=== PATIENT | female | born 1945 | race Caucasian/White ===

== ENCOUNTER → 2017-05-15 | Outpatient (CLI) | payer MEDICARE | LOC: COL.RAD 14:09 | DX: J44.9 Chronic obstructive pulmonary disease, unspecified (principal); J98.6 Disorders of diaphragm; K76.89 Other specified diseases of liver; N28.1 Cyst of kidney, acquired; Z90.49 Acquired absence of other specified parts of digestive tract; I70.0 Atherosclerosis of aorta; M47.816 Spondylosis without myelopathy or radiculopathy, lumbar region; K83.8 Other specified diseases of biliary tract; Z98.890 Other specified postprocedural states | CPT/HCPCS: Q9967 ==

== ENCOUNTER → 2018-04-02 | Outpatient (CLI) | payer MEDICARE | LOC: COL.RAD 12:34 | DX: M19.022 Primary osteoarthritis, left elbow (principal); S69.92XS Unspecified injury of left wrist, hand and finger(s), sequela ==

== ENCOUNTER 2018-10-31 14:09 | Day surgery (SDC) | payer MEDICARE ==
[2018-10-31 16:05] VITALS: BP 118/76; PULSE 85; TEMP 97.2
--- NOTE | 2018-10-31 16:05 | NUR ---
Pt to GI bay 7 via cart from [employer]. Pt awake and alert. Pt ambulates to recliner with stand by assitance. Daughter in room. Warm blankets given. Muffin and juice provided. Call light within reach.
[2018-10-31 16:15] VITALS: BP 118/76; PULSE 86
--- NOTE | 2018-10-31 16:15 | NUR ---
Pt continues to rest. Denies needs. Call light within reach.
[2018-10-31 16:30] VITALS: BP 128/76; PULSE 81
--- NOTE | 2018-10-31 16:30 | NUR ---
Discharge instructions reviewed. Pt voices understanding. IV site discontinued with all parts intact. Pt up to dress. Call light within reach.
--- NOTE | 2018-10-31 16:59 | NUR ---
Pt escorted to private car via wheel chair. Pt accompanied home by her daughter.
== END 2018-10-31 17:02 | disposition home or self-care (01) ==
LOC: SDCO 14:09
DX: R13.10 Dysphagia, unspecified (principal); K22.2 Esophageal obstruction; K25.7 Chronic gastric ulcer without hemorrhage or perforation; Z79.899 Other long term (current) drug therapy; J43.9 Emphysema, unspecified; E03.9 Hypothyroidism, unspecified; K21.9 Gastro-esophageal reflux disease without esophagitis; Z90.49 Acquired absence of other specified parts of digestive tract; Z90.710 Acquired absence of both cervix and uterus
CPT/HCPCS: C1726; J2250; J3010

== ENCOUNTER → 2019-09-07 | Outpatient (CLI) | payer MEDICARE ==
[~2019-09-07] MED LIST: AMITRIPTYLINE H75 M1 PO; CEFTIN 250250 MG/TAB PO; DAZIDOX10 MG PO; FENTANYL 25 MCG TD; PROZAC 20MG20 MG PO; SYNTHROID0.088 MG/T PO; VENTOLIN0.09 MG IH
== END ==
LOC: COL.RAD 09:43
DX: J98.4 Other disorders of lung (principal); R04.2 Hemoptysis; J43.9 Emphysema, unspecified; J98.6 Disorders of diaphragm; Z90.49 Acquired absence of other specified parts of digestive tract
CPT/HCPCS: Q9967

== ENCOUNTER 2019-11-27 23:35 | Inpatient (IN) | payer MEDICARE ==
[~2019-11-27] VITALS: Ht 165.1 cm; Wt 84.7 kg
[~2019-11-27 23:35] MED LIST changes: -PROZAC 20MG20 MG PO; +PROZAC40 MG PO
[2019-11-28] VITALS (531 sets, daily range): BP systolic 107–131; BP diastolic 49–71; PULSE 84–91; TEMP 97.3–98.5; O2SAT 68–100
[2019-11-28 00:42] LABS: BASO % 0.3 % (0.0-2.0); EOS % 0.1 % (0-4.0); GRAN # 10.8 (1.4-6.5); GRAN % 88.8 % (42.2-75.2); HEMATOCRIT 39.3 % (37.0-47.0); HEMOGLOBIN 13.2 g/dl (12.5-16.0); LYMPH # 0.5 (1.2-3.4); LYMPH % 4.4 % (20.0-51.0); MEAN CELL VOLUME 95 fl (80.0-100.0); MEAN CORPUSCULAR HEMOGLOBIN 32 pg (27.0-31.0); MEAN CORPUSCULAR HGB CONC 34 g/dl (33.0-37.0); MONO # 0.7 (0.1-0.6); MONO % 5.7 % (1.7-9.3); PLATELET COUNT 148 K/mm3 (130-400); RED BLOOD COUNT 4.15 M/mm3 (4.10-5.30); REDCELL DISTRIBUTION WIDTH-CV 13.1 % (11.5-14.5)
[2019-11-28 00:48] LABS: INR 1.3 (0.8-3.0); PROTHROMBIN TIME 15.2 SECONDS (9.7-12.8)
[2019-11-28 01:00] LABS: ALANINE AMINOTRANSFERASE 69 U/L (4-34); ALBUMIN 3.6 gm/dL (3.5-5.0); ALKALINE PHOSPHATASE 121 U/L (50-136); ANION GAP 11 mmol/L (7-16); AST,SGOT 40 U/L (15-37); BILIRUBIN,TOTAL 0.6 mg/dL (0.0-1.0); BLOOD UREA NITROGEN 18 mg/dL (7-17); CALCIUM 8.8 mg/dL (8.4-10.2); CARBON DIOXIDE 26 mmol/L (22-30); CHLORIDE 99 mmol/L (98-107); CREATININE, serum 0.56 (0.52-1.25); GLUCOSE 133 mg/dL (74-106); POTASSIUM 3.2 mmol/L (3.4-5.0); SODIUM 136 mmol/L (137-145); TOTAL PROTEIN 6.5 gm/dL (6.4-8.2)
[2019-11-28 01:11] LABS: TROPONIN-I < 0.012 ng/mL (0.000-0.035)
[2019-11-28 01:38] LABS: ARTERIAL BLD GAS O2 SATURATION 89.1 % (92-100); ARTERIAL BLD GAS TCO2 CT 28.7; ARTERIAL BLOOD GAS BASE EXCESS 2.6 (-2-2); ARTERIAL BLOOD GAS HCO3 27.4 meq/L (22-26); ARTERIAL BLOOD GAS PCO2 42.8 mmHg (35-45); ARTERIAL BLOOD GAS PO2 52.3 mmHg (80-100); ARTERIAL BLOOD GAS pH 7.42 (7.35-7.45)
--- NOTE | 2019-11-28 03:31 | NUR ---
Report received from AMY Holden in the ED. Supplemental information received from AMY Becerra. Patient will be brought over soon.
--- NOTE | 2019-11-28 04:01 | NUR ---
Patient arrives at this time via ED cart. Patient transfers self to unit bed via stand and pivot. patient screams out in pain with all movement. Assisted patient with legs up into the bed. Attached to unit monitoring equipment. Assessment complete. Patient has severe stabbing pain to her right side and is unable to take good breaths, so auscultation of lungs is difficult. Lungs are clear in the upper lobes with bases being diminished with coarse crackles. Patient is placed on an AIRVO machine. HR and rhythm are regular with normal S1 and S2 heard. Patient does have frequent PVC's on the monitor. Bowel sounds active x4. Patient has some bruising to her right lower flank and lower back. She also has some small scratches to her left lower legs and ankle from her scratching. Assisted patient to a comfortable position. Patient requests some food, soup and pudding provided. Patient refuses to cough to clear lungs or take deep breaths, explained to patient that this would only make her condition worse, she confirms understanding, but continues to refuse and will moan and cry when asked. Patient has no further needs at this time. She would "just like to sleep". Call light within reach. Will continue to monitor.
[2019-11-28] MEDS ORDERED: K-TAB10 PO (04:34)
[2019-11-28 05:57] LABS: ARTERIAL BLD GAS TCO2 CT 27.9; ARTERIAL BLOOD GAS BASE EXCESS 0.7 (-2-2); ARTERIAL BLOOD GAS HCO3 26.5 meq/L (22-26); ARTERIAL BLOOD GAS PCO2 46.7 mmHg (35-45); ARTERIAL BLOOD GAS PO2 69.8 mmHg (80-100); ARTERIAL BLOOD GAS pH 7.37 (7.35-7.45)
[2019-11-28 07:27] LABS: BASO % 0.2 % (0.0-2.0); EOS % 0.3 % (0-4.0); GRAN # 8.8 (1.4-6.5); HEMOGLOBIN 12.1 g/dl (12.5-16.0); LYMPH % 9.6 % (20.0-51.0); MEAN CELL VOLUME 96 fl (80.0-100.0); MEAN CORPUSCULAR HEMOGLOBIN 32 pg (27.0-31.0); MEAN CORPUSCULAR HGB CONC 34 g/dl (33.0-37.0); MEAN PLATELET VOLUME 10.2 fl (7.4-10.4); MONO # 0.7 (0.1-0.6); MONO % 6.1 % (1.7-9.3); PLATELET COUNT 163 K/mm3 (130-400); RED BLOOD COUNT 3.74 M/mm3 (4.10-5.30); REDCELL DISTRIBUTION WIDTH-CV 13.2 % (11.5-14.5)
--- NOTE | 2019-11-28 07:30 | NUR ---
Patient report recieved from AMY Pitts. Patient asleep at this time. NS infusing at ordered rate to uncomplicated peripheral RH IV. Bed in low and locked position, call light within reach, rails up x3 and bed alarm armed.
--- NOTE | 2019-11-28 07:30 | NUR ---
Bedside report given to AMY Wolff.
[2019-11-28 07:31] LABS: ALBUMIN 3.2 gm/dL (3.5-5.0); BILIRUBIN,TOTAL 0.5 mg/dL (0.0-1.0); CALCIUM 8.4 mg/dL (8.4-10.2); CREATININE, serum 0.59 (0.52-1.25); MAGNESIUM 1.6 mg/dL (1.6-2.3); POTASSIUM 3.2 mmol/L (3.4-5.0); TOTAL PROTEIN 5.9 gm/dL (6.4-8.2)
[2019-11-28 07:42] LABS: HEMATOCRIT 35.9 % (37.0-47.0)
--- NOTE | 2019-11-28 08:08 | NUR ---
Patient with labile moods. Support provided and education regarding POC. Patient is tearful but agreeable by end of interaction.
[2019-11-28 11:30] LABS: COLLECTION METHOD CLEAN CATCH
[2019-11-28 12:04] LABS: MUCOUS Present /lpf; PH 5 (5-8); SQUAMOUS EPITHELIAL 0-2 /hpf; URINE APPEARANCE Clear; URINE BACTERIA None Seen /hpf; URINE BILIRUBIN Negative (NEGATIVE); URINE BLOOD Negative (NEGATIVE); URINE COLOR Yellow; URINE GLUCOSE Negative (NEGATIVE); URINE KETONE Negative (NEGATIVE); URINE LEUKOCYTE ESTERASE Negative (NEGATIVE); URINE NITRATE Negative (NEGATIVE); URINE PROTEIN(semi-quant) 2+ (NEGATIVE); URINE UROBILINOGEN Negative (NEGATIVE)
--- NOTE | 2019-11-28 13:03 | NUR ---
Patient placed on BiPap per RT following instruction from Ariel Nguyen. Patient reassurance and education provided.
--- NOTE | 2019-11-28 13:40 | NUR ---
Patient with increased anxiety. Removed BiPap from herself and is replaced to Airvo. RT notified.
--- NOTE | 2019-11-28 14:00 | NUR ---
Patient bed alarm rings. Patient is attempting to sit at side of bed crying with anxiety. Support provided. Patient repositioned. Bradly Nguyen and Olivia at bedside with increased pain management orders provided. See MAR. Care ongoing.
--- NOTE | 2019-11-28 14:44 | NUR ---
Patient resting comfortably.
--- NOTE | 2019-11-28 19:15 | NUR ---
Bedside report received from AMY Wolff.
--- NOTE | 2019-11-28 20:00 | NUR ---
Patient resting in bed, awakens easily to name. Patient is drowsy but easily arousable. She continues to remain on STEREOTYPER pump and is not pushing the button very often, but she states it is helping a lot and that the pain is tolerable now at a 4/10. No complaints of SOA. Assessment complete. She is drowsy but alert when having conversation, she is oriented x4. Lungs are clear in the upper fel[place] with diminished bases with coarse crackles. Patient has no other significant findings or changes from previous exams. Patient requests some more juice. Provided. No further needs at this time. Will continue to monitor. Call light within reach. Bed alarm on.
[2019-11-29] VITALS (563 sets, daily range): BP systolic 108–137; BP diastolic 59–87; PULSE 87–97; TEMP 98.4–98.9; O2SAT 71–99
--- NOTE | 2019-11-29 07:29 | NUR ---
Bedside report given to AMY Wolff
[2019-11-29 07:38] LABS: BASO % 0.1 % (0.0-2.0); EOS % 0.5 % (0-4.0); GRAN % 82.1 % (42.2-75.2); HEMOGLOBIN 11.5 g/dl (12.5-16.0); LYMPH # 0.8 (1.2-3.4); LYMPH % 10.2 % (20.0-51.0); MEAN CELL VOLUME 97 fl (80.0-100.0); MEAN CORPUSCULAR HEMOGLOBIN 32 pg (27.0-31.0); MEAN CORPUSCULAR HGB CONC 33 g/dl (33.0-37.0); MEAN PLATELET VOLUME 10.9 fl (7.4-10.4); MONO # 0.5 (0.1-0.6); MONO % 6.4 % (1.7-9.3); PLATELET COUNT 145 K/mm3 (130-400); RED BLOOD COUNT 3.58 M/mm3 (4.10-5.30); REDCELL DISTRIBUTION WIDTH-CV 13.3 % (11.5-14.5)
[2019-11-29 07:51] LABS: CALCIUM 8.1 mg/dL (8.4-10.2); CREATININE, serum 0.47 (0.52-1.25); POTASSIUM 3.7 mmol/L (3.4-5.0)
[2019-11-29 07:54] LABS: HEMATOCRIT 34.6 % (37.0-47.0)
--- NOTE | 2019-11-29 09:39 | NUR ---
SW contacted Pt via telephone to conduct assessment as ICU is under isolation. Pt did consent to assessment being completed via phone, however she continued to discuss having difficulty with coughing, and that she was too tired to complete intake. SW did receive verbal permission to contact Pt's daughter Kamilah by telephone. Pt currently lives in [facility], however she has been living with her daughter Kamilah since current coronavirus situation. Patient listed Kamilah as primary care support, and EMR [phone]. Patient does not currently have a DPOA, however may be interested in receivng one. Patients PCP is Dr. Peters, and pt had recently seen her for an appointment(no folow ups). patient gets her medications from [facility] in [facility] with no complications. No current needs noted, however SW will continue to follow, provider had submitted a referral for services. SW did speak with the nurse who reported that it would be discussed with the provider today.
--- NOTE | 2019-11-29 19:46 | NUR ---
PT STATES SHE HAS BEEN COUGHING UP SPUTUM ALL DAY BUT REFUSES TO COUGH POST BREATHING TX AT THIS TIME.
--- NOTE | 2019-11-29 20:00 | NUR ---
Assessment completed and charted at this time, please see documentation for details. Patient resting in chair, just finished dinner. No questions or concerns, will continue to monitor.
--- NOTE | 2019-11-29 21:40 | NUR ---
Patient assisted back to bed from chair by this nurse and AMY Lr. Patient combative, stating "she doesn't need our help and we are controlling." Patient also states that "we are bossy and unable to do anything for her." This is a change from her demeanor on assessment, but consistent for reports from previous shifts. Will continue to monitor.
[2019-11-30] VITALS (889 sets, daily range): BP systolic 102–128; BP diastolic 50–79; PULSE 89–98; TEMP 98–99.6; O2SAT 65–98
[2019-11-30 05:10] LABS: BASO % 0.2 % (0.0-2.0); EOS # 0.1 (0.0-0.7); EOS % 1.7 % (0-4.0); GRAN % 75.5 % (42.2-75.2); HEMATOCRIT 33.8 % (37.0-47.0); HEMOGLOBIN 11.4 g/dl (12.5-16.0); LYMPH # 0.7 (1.2-3.4); LYMPH % 12.8 % (20.0-51.0); MEAN CELL VOLUME 96 fl (80.0-100.0); MEAN CORPUSCULAR HEMOGLOBIN 33 pg (27.0-31.0); MEAN CORPUSCULAR HGB CONC 34 g/dl (33.0-37.0); MONO # 0.5 (0.1-0.6); MONO % 9.4 % (1.7-9.3); PLATELET COUNT 143 K/mm3 (130-400); RED BLOOD COUNT 3.51 M/mm3 (4.10-5.30); REDCELL DISTRIBUTION WIDTH-CV 13.2 % (11.5-14.5)
[2019-11-30 05:24] LABS: CALCIUM 8.1 mg/dL (8.4-10.2); CREATININE, serum 0.41 (0.52-1.25); MAGNESIUM 1.7 mg/dL (1.6-2.3); POTASSIUM 3.9 mmol/L (3.4-5.0)
--- NOTE | 2019-11-30 07:10 | NUR ---
Bedside shift report received from AMY Mcadams. Patient is sleeping, but easily aroused. Vital signs stable. Full assessment completed. Patient remains on AirVO at 60L/min, 70% FiO2 with labored breathing. Discussed with patient code status, and patient wishes to be DNR/DNI which was also reviewed yesterday by Dr. Nguyen. Call light within reach. Bed in lowest position. Side rails up x3. Bed alarm on and functioning appropriately.
--- NOTE | 2019-11-30 10:14 | NUR ---
LAURA contacted Kamilah (ph#[phone]) to introduce oneself. LAURA left contact information. Will continue to monitor PT/OT notes for discharge recommendations.
--- NOTE | 2019-11-30 15:30 | NUR ---
attempted to visit with patient regarding PICC placement. Explained the procedure to the patient. Patient refused PICC line at this time. Coal Pulverizing Operator for visit with patient regarding PICC placement.
--- NOTE | 2019-11-30 19:20 | NUR ---
Bedside shift report given to AMY Mcadams. Patient is awake and resting, vital signs stable. Patient has no complaints or concerns at this time. Call light within reach and bed in lowest position.
--- NOTE | 2019-11-30 20:48 | NUR ---
Patient assessment completed and charted at this time, please see documentation for details. Patient in bed, Emily RT in room also. Patient verbally combative, stating "she didn't know why we were in here! Leave me alone!" Reassured patient and discussed wearing the bipap, patient continued to decline. States she "only wear the oxygen if she wants to." Educated on importance of treatments, Will continue to monitor.
--- NOTE | 2019-11-30 21:15 | NUR ---
Made aware by tele that pt is desatting and RN states AirVo shows water is low. Immediatly went to pt's room with replacement water, pt's SpO2 70s-80s. AirVo2 NC under pt's mouth; RN states he had also fixed this and spoke with pt about keeping NC in nostrils at all times. Placed NC back in nostrils and asked pt to take deep breaths through nose. Pt aggitated and yells; states "You guys are all just playing games! You don't understand anything!" Pt continued to sat low to mid 80s, recommend pt use BiPAP; this aggitates pt further. Explained why and how we are trying to help her. Pt requests I leave the room. Continued to monitor pt's sats from out of her sight. When settled after RN also left sight, sats holding 90-91% on highest settings of AirVo2 HHFNC - 60L of 92+% O2.
--- NOTE | 2019-11-30 23:15 | NUR ---
Patient assisted to commode, upon finishing patient was refusing to go back to bed saying "she wanted to go home and we are just holding her here!" Educated patient on her need for high oxygen levels, pain medication and antibiotics, and she would not be able to receive any of those at home. Nurse spent thirty minutes in room attempting to educate patient and keep her safe. Patient finally went back to bed, bed alarm in place will continue to monitor.
[2019-12-01] VITALS (640 sets, daily range): BP systolic 112–139; BP diastolic 59–78; PULSE 88–98; TEMP 98.2–99.6; O2SAT 28–100
--- NOTE | 2019-12-01 07:45 | NUR ---
Report received from AMY Mcadams.
--- NOTE | 2019-12-01 08:00 | NUR ---
Assessment completed. Pt anxious, requesting to get out of bed. Refusing to use Airvo. Discussed plan of care r/t airvo, meds on shift, cop breaker for pain control. Pt verbalized understanding. Pt OOB to BSC with stand by assist. Pt has increase SOB with activity. Pt cleaned, gown and linens changed. Pt back to bed and HOB up at 45 degrees. Remains on Airvo 60L at fio2 90%. SPO2 upper 80s after activity. Updated Dr Nguyen on O2 sats with activity. No new orders at this time.
[2019-12-01 08:01] LABS: BASO % 0.3 % (0.0-2.0); EOS # 0.1 (0.0-0.7); GRAN # 4.5 (1.4-6.5); GRAN % 71.8 % (42.2-75.2); HEMOGLOBIN 11.3 g/dl (12.5-16.0); LYMPH # 0.9 (1.2-3.4); LYMPH % 13.6 % (20.0-51.0); MEAN CELL VOLUME 96 fl (80.0-100.0); MEAN CORPUSCULAR HEMOGLOBIN 32 pg (27.0-31.0); MEAN CORPUSCULAR HGB CONC 33 g/dl (33.0-37.0); MEAN PLATELET VOLUME 10.7 fl (7.4-10.4); MONO # 0.8 (0.1-0.6); MONO % 12.8 % (1.7-9.3); PLATELET COUNT 163 K/mm3 (130-400); RED BLOOD COUNT 3.58 M/mm3 (4.10-5.30)
[2019-12-01 08:03] LABS: HEMATOCRIT 34.4 % (37.0-47.0)
[2019-12-01 08:10] LABS: ALBUMIN 2.8 gm/dL (3.5-5.0); BILIRUBIN,TOTAL 0.6 mg/dL (0.0-1.0); CALCIUM 8.3 mg/dL (8.4-10.2); CREATININE, serum 0.42 (0.52-1.25); POTASSIUM 3.7 mmol/L (3.4-5.0); TOTAL PROTEIN 5.5 gm/dL (6.4-8.2)
--- NOTE | 2019-12-01 11:51 | NUR ---
First visit from the lamination machine operator. No needs right now.
--- NOTE | 2019-12-01 12:30 | NUR ---
Pt resting in bed, drowsy, but arousable. Remains on Airvo at 60L, fio2 90%. Call light in reach.
--- NOTE | 2019-12-01 14:10 | NUR ---
Pt awake, agitated. Pt asking about pain medication and stating she is not comfortable in bed. Pt wants to get up and walk around unit. Discussed with pt she is on Airvo with fio2 90% and still O2 sats low 90s. Repositioned pt in bed. Water and juice provided. TV on for distraction. Call light in reach.
--- NOTE | 2019-12-01 15:35 | NUR ---
SW attempted to contact the patient at [phone] to discuss PT/OT recommendations for post acute rehab, the patient did not answer. SW attempted to contact the patient's nurse. Will attempt at a later time.
--- NOTE | 2019-12-01 16:26 | NUR ---
SW spoke to the patient. SW discussed Medicare.gov's list of post acute rehab facilities in the patient's geographical area. The patient was in pain and did not want to talk at this time. Will follow-up at a later. Informed nurse.
--- NOTE | 2019-12-01 20:15 | NUR ---
report received from candida bland RN.
--- NOTE | 2019-12-01 20:20 | NUR ---
Report given to AMY Becerra.
--- NOTE | 2019-12-01 21:16 | NUR ---
Pt able to adjust self in bed. Able to answer questions appropriately. At this time expressed comfort to this nurse. Denies any needs. Reports would like to brush teeth in the morning. Personal belongings and call light in place.
[2019-12-02] VITALS (452 sets, daily range): BP systolic 99–140; BP diastolic 66–79; PULSE 81–93; TEMP 98–98.7; O2SAT 65–100
--- NOTE | 2019-12-02 01:10 | NUR ---
Pt resting quietly in bed following evening medications. At 2300 RT Lynn and this nurse were able to provide education to pt on the importance of wearing the Bipap for as long as tolerated this evening. Pt was hesitant and expressed desire to not wear it although was complaint. Bipap was warn for approx. 2 hours when pt took off make and was placed back onto Airvo.
[2019-12-02 05:41] LABS: BASO % 0.2 % (0.0-2.0); EOS # 0.1 (0.0-0.7); EOS % 1.6 % (0-4.0); GRAN # 2.8 (1.4-6.5); GRAN % 64.7 % (42.2-75.2); HEMOGLOBIN 10.5 g/dl (12.5-16.0); LYMPH # 0.8 (1.2-3.4); LYMPH % 17.6 % (20.0-51.0); MEAN CELL VOLUME 95 fl (80.0-100.0); MEAN CORPUSCULAR HEMOGLOBIN 32 pg (27.0-31.0); MEAN CORPUSCULAR HGB CONC 34 g/dl (33.0-37.0); MEAN PLATELET VOLUME 10.3 fl (7.4-10.4); MONO # 0.7 (0.1-0.6); MONO % 14.8 % (1.7-9.3); PLATELET COUNT 158 K/mm3 (130-400); RED BLOOD COUNT 3.28 M/mm3 (4.10-5.30); REDCELL DISTRIBUTION WIDTH-CV 12.6 % (11.5-14.5)
[2019-12-02 05:45] LABS: HEMATOCRIT 31.1 % (37.0-47.0)
[2019-12-02 05:54] LABS: ALBUMIN 2.7 gm/dL (3.5-5.0); BILIRUBIN,TOTAL 0.5 mg/dL (0.0-1.0); CALCIUM 8.4 mg/dL (8.4-10.2); CREATININE, serum 0.47 (0.52-1.25); MAGNESIUM 1.7 mg/dL (1.6-2.3); POTASSIUM 3.6 mmol/L (3.4-5.0); TOTAL PROTEIN 5.3 gm/dL (6.4-8.2)
--- NOTE | 2019-12-02 07:15 | NUR ---
Report provided to Yolanda Cruz RN Pt resting in bed at this time.
--- NOTE | 2019-12-02 10:00 | NUR ---
visted with patient regarding PICC as an option. Patient declined.
--- NOTE | 2019-12-02 10:58 | NUR ---
LAURA met with the patient to discuss Medicare.gov's list of post acute rehab options. The patient's first choice is [facility], second choice is [facility] and third choice is [facility]. Referral sent. Awaiting responses.
--- NOTE | 2019-12-02 13:53 | NUR ---
Jolie from [facility] reports they can follow the patient's care and if the patient's oxygen needs (using the intermittment BiPAP) are reduced they will be able to take the patient.
--- NOTE | 2019-12-02 19:10 | NUR ---
Report received from Yolanda Cruz RN
[2019-12-03] VITALS (700 sets, daily range): BP systolic 118–139; BP diastolic 62–110; PULSE 80–91; TEMP 97.8–99.4; O2SAT 59–100
[2019-12-03 05:49] LABS: HEMOGLOBIN 10.8 g/dl (12.5-16.0); MEAN CELL VOLUME 96 fl (80.0-100.0); MEAN CORPUSCULAR HEMOGLOBIN 32 pg (27.0-31.0); MEAN CORPUSCULAR HGB CONC 33 g/dl (33.0-37.0); MEAN PLATELET VOLUME 10.2 fl (7.4-10.4); PLATELET COUNT 173 K/mm3 (130-400); REDCELL DISTRIBUTION WIDTH-CV 12.9 % (11.5-14.5)
[2019-12-03 05:54] LABS: HEMATOCRIT 32.6 % (37.0-47.0)
[2019-12-03 06:00] LABS: ALBUMIN 2.7 gm/dL (3.5-5.0); BILIRUBIN,TOTAL 0.4 mg/dL (0.0-1.0); CALCIUM 8.5 mg/dL (8.4-10.2); CREATININE, serum 0.56 (0.52-1.25); MAGNESIUM 1.7 mg/dL (1.6-2.3); PHOSPHOROUS 3.2 mg/dL (2.5-4.5); TOTAL PROTEIN 5.5 gm/dL (6.4-8.2)
[2019-12-03 06:32] LABS: BAND 2 % (0-10); BASOPHIL 1 % (0-2); EOSINOPHIL 5 % (0-4); LYMPHOCYTE 19 % (20.0-51.0); NEUTROPHILS 60 % (42.0-75.2); PLATELET ESTIMATE NORMAL (NORMAL)
--- NOTE | 2019-12-03 07:00 | NUR ---
Bedside report received from Mariam. Pt resting in bed. Currently on Air VO at 90% FIO2.
--- NOTE | 2019-12-03 07:20 | NUR ---
Bedside report provided to Luc REYES. Pt resting in bed at this time, just completed conversation with Dr. Nguyen.
--- NOTE | 2019-12-03 12:20 | NUR ---
Dr. Nguyen discussed care plan with patient and informed her she needs to use BiPap while sleeping at night and during the day if necessary because her Xray today was worse than yesterday. Patient agreed to wear her Bipap and she kept in on for approximatley 60 minutes. Patient tolerated it well.
--- NOTE | 2019-12-03 13:37 | NUR ---
dope worker and Julio Espinal met with patient, per Dr Nguyen's request to discuss need for tertiary care at an LTAC hospital. Patient became very emotional, declined transfer to an LTAC and spoke of her previous a year ago. Staff offered support to patient. Family meeting with Ruben Freeman, oncology social worker, patient and daughter, Kamilah (via telephone) is arranged for 12/04/2019 at 8:00am to discuss and come to conclusion on patient's goals of care and next care steps. At this time, patient is not a candidate to transfer to a skilled care facility due to higher oxygen demands.
--- NOTE | 2019-12-03 13:42 | NUR ---
platform worker spoke with patient's daughter, Kamilah, and confirmed that she can be present at the family meeting on 12/04/2019 at 8:00am via telephone. Worker provided emotional support as Kamilah expressed difficulty of her mother's illness and how is very similar to her father's illness and eventual . Worker encouraged Kamilah to speak from her heart when communicating with her mother tomorrow during the meeting.
--- NOTE | 2019-12-03 19:23 | NUR ---
Patient wore Bipap with nap for approximately 45 minutes before she stated she could not take it anymore. Report given to AMY Lao. Pt is sitting on edge of bed with call light within reach.
--- NOTE | 2019-12-03 21:00 | NUR ---
patient was ready for bed so I told her I would call respiratory to come place her Bipap and the patient started to get emotional and said she refuses to wear it tonight. Patient stated, "I dont even care you can say I refused". Patient states she just wont be able to tolerate it tonight and that it hurts her dentures, which she complains of having a sore from. I suggested taking the dentures out and she refused.
[2019-12-04] VITALS (230 sets, daily range): BP systolic 141–142; BP diastolic 82–87; PULSE 88–96; TEMP 98.8–99.4; O2SAT 66–94
[2019-12-04 05:34] LABS: BASO % 0.3 % (0.0-2.0); EOS # 0.1 (0.0-0.7); EOS % 1.5 % (0-4.0); GRAN # 4.8 (1.4-6.5); GRAN % 70.1 % (42.2-75.2); HEMOGLOBIN 12.3 g/dl (12.5-16.0); LYMPH # 1.1 (1.2-3.4); LYMPH % 15.5 % (20.0-51.0); MEAN CELL VOLUME 95 fl (80.0-100.0); MEAN CORPUSCULAR HEMOGLOBIN 32 pg (27.0-31.0); MEAN CORPUSCULAR HGB CONC 33 g/dl (33.0-37.0); MEAN PLATELET VOLUME 10.1 fl (7.4-10.4); MONO # 0.8 (0.1-0.6); MONO % 11.3 % (1.7-9.3); PLATELET COUNT 225 K/mm3 (130-400); RED BLOOD COUNT 3.89 M/mm3 (4.10-5.30); REDCELL DISTRIBUTION WIDTH-CV 12.9 % (11.5-14.5)
[2019-12-04 05:38] LABS: CALCIUM 8.7 mg/dL (8.4-10.2); CREATININE, serum 0.54 (0.52-1.25); MAGNESIUM 1.6 mg/dL (1.6-2.3); PHOSPHOROUS 3.6 mg/dL (2.5-4.5); POTASSIUM 3.9 mmol/L (3.4-5.0)
[2019-12-04 05:39] LABS: HEMATOCRIT 36.9 % (37.0-47.0)
--- NOTE | 2019-12-04 08:44 | NUR ---
I was asked by Nara Taylor, case management, to meet with pt along with social work manager and physician. Elis Freeman, case management, pt's daughter was listening by speaker phone, and myself met with pt at 0800 this am. Pt listened briefly to Dr Nguyen as he explained her medical situation, that no assisted in the area can meet her oxygen needs, and that he is recommending that she go to an LTAC for an anticipated 2-3 weeks while her pneumonia can clear and she can return to a state that can be supported locally. Pt is very clear that she does not believe that her situation is as serious as we are all telling her, she repeatedly states "I just fell in the bathtub and broke some ribs--that is all". I don't always even use oxygen at home and I will manage very well out of this hospital and with my family at home. Dr Nguyen explained that currently she is using between 60-70 L of oxygen through the airvo. She replied she does well on 02 sats in the 80's and she does not see this as a problem. She repeatedly states she will not go to an LTAC and would rather go home and . Her daughter replied by phone that she is not wantng her mother to go either and will take her home and take care of her. When asked if she had tried the lower level of oxygen she is planning on using, she stated now but there was no reason--she knows she will be fine. She then asked Dr Nguyen not come back--she does not want him on her case anymore. She stated she felt he was sending [facility] to [facility] ". At that point I introduced myself as the palliative care nurse and tried to encourage her to take the time to get over her pneumonia and stronger with medical support so she can go home. I acknowledged the importance of family support, the value of being at home, and the need for medical support for her to help her get to that point. At that point she began talking of leaving the hospital and going home. She felt that she was being lied to and didn't care what the people "caring" for said. Again she was reminded that this was a situation that she could recover from with medical support and she reported she didn't care, she would go home and before she would go to [facility]" or even stay here. When asked what she would do if she got home and couldn't breath, her daughter stated she would take her to a different hospital--pt stated she would just . At that point she asked me to leave and not return. her thought. She stated she thought we were all
--- NOTE | 2019-12-04 09:30 | NUR ---
LAURA attended meeting with Flakita Rivera the [facility] nurse and the patient's daughter, Kamilah on speaker phone (ph#[phone]). Dr. Nguyen explained her medical situation and that a [facility] could not suppport her oxygen needs and was recommending to go to LTACH for approximately 2-[address] Nguyen explained the seriousness of her oxgen needs. The patientis currently on 60-70 L oxygen through the airvo. The patient is adament she does not want to go to an LTACH and she would rather go home and . Her daughter, Kamilah does not want her mother to go either and that she will take the patient home. Kamilah is aware of the patient's oxygen needs. The patient wants to leave against medical advice. The patient asked Dr. Nguyen to leave the room. Since the patient wants to leave AMA, after the meeting, LAURA met with the patient to offer Medicare.gov's list of home health agencies. The patient took the list but was not interested in home health at this time. LAURA informed the patient if she feels she wants home health at a later time she can contact her PCP, Dr. Peters. LAURA attempted to contact the patient's daughter, Kamilah to discuss home health, left message. LAURA contacted the nurse nurse outreach case manager with Dr. Peters's office to inform her of the patient's decision and they will follow up with the patient. There are no additional needs at this time.
[2019-12-04] MEDS ORDERED: LASIX 20MG TABL20 MG PO (10:01)
[2019-12-04] MEDS ORDERED: LEVAQUIN 750MG750 M1 PO (10:01)
--- NOTE | 2019-12-04 10:01 | NUR ---
LAURA contacted the patient's oxygen provider, [facility]. LAURA spoke with [facility] and they do provide the patient's oxgyen and would be willing to bring a tank to the hospital, if needed. During the call SW met with the patient and she reports she has enough oxygen at home and that she will call her daughter to bring a tank to the hospital. SW attempted to contact the daughter to ask her about the tank, no answer. No additional needs.
[2019-12-04] MEDS ORDERED: PREDNISONE10 MG PO (10:02)
--- NOTE | 2019-12-04 14:07 | NUR ---
The patient left against medical advice.
== END 2019-12-04 13:15 | disposition left against medical advice (07) | DRG 871 ==
LOC: COL.ER 23:35 → ICU 11-28 01:31
PROVIDERS: Emergency Medicine; Internal Medicine Pulmonary Disease; Nurse Practitioner Family; Physician Assistant; Student in an Organized Health Care Education/Training Program; ADMIT Hospitalist
PROC: 02HV33Z Insertion of Infusion Device into Superior Vena Cava, Percutaneous Approach (ICD-10-PCS; principal; 2019-12-03)
DX: A41.9 Sepsis, unspecified organism (principal); J96.21 Acute and chronic respiratory failure with hypoxia; J18.9 Pneumonia, unspecified organism; S22.31XA Fracture of one rib, right side, initial encounter for closed fracture; E87.3 Alkalosis; J44.9 Chronic obstructive pulmonary disease, unspecified; E03.9 Hypothyroidism, unspecified; E87.6 Hypokalemia; G89.29 Other chronic pain; E83.42 Hypomagnesemia; Z66 Do not resuscitate; R73.9 Hyperglycemia, unspecified; R45.1 Restlessness and agitation; Z53.21 Procedure and treatment not carried out due to patient leaving prior to being seen by health care provider; R53.81 Other malaise; G47.00 Insomnia, unspecified; R74.0 Nonspecific elevation of levels of transaminase and lactic acid dehydrogenase [LDH]; W19.XXXA Unspecified fall, initial encounter; Z86.73 Personal history of transient ischemic attack (TIA), and cerebral infarction without residual deficits; Z90.710 Acquired absence of both cervix and uterus; Z87.891 Personal history of nicotine dependence
CPT/HCPCS: 99223-AI; 99231-AI; 99232-AI; 99233-AI; 99239; A4216; A9284; C1751; C9113; J0692; J0696; J1170; J1650; J1885; J1940; J1956; J3475; J3480; J7030

== ENCOUNTER → 2021-05-22 | Outpatient (CLI) | payer MEDICARE ==
[~2021-05-22] MED LIST changes: +K-TAB10 PO; +LASIX 20MG TABL20 MG PO; +LEVAQUIN 750MG750 M1 PO; +PREDNISONE10 MG PO
== END ==
LOC: COL.RAD 04-06 10:30
DX: Q61.9 Cystic kidney disease, unspecified (principal)

== ENCOUNTER 2022-01-24 14:20 | Inpatient (IN) | payer MEDICARE ==
[~2022-01-24] VITALS: Ht 165.1 cm; Wt 82.0 kg
[2022-01-24 15:00] LABS: HEMATOCRIT 40.9 % (37.0-47.0); HEMOGLOBIN 13.8 g/dl (12.5-16.0); MEAN CELL VOLUME 95 fl (80.0-100.0); MEAN CORPUSCULAR HEMOGLOBIN 32 pg (27-31); MEAN CORPUSCULAR HGB CONC 34 g/dl (33.0-37.0); MEAN PLATELET VOLUME 9.7 fl (7.4-10.4); PLATELET COUNT 152 K/mm3 (130-400); RED BLOOD COUNT 4.31 M/mm3 (4.10-5.30)
[2022-01-24 15:17] LABS: ALANINE AMINOTRANSFERASE 45 U/L (0-55); ALBUMIN 3.2 gm/dL (3.4-4.8); ALKALINE PHOSPHATASE 65 U/L (40-150); ANION GAP 12 mmol/L (7-16); AST,SGOT 43 U/L (5-34); BILIRUBIN,TOTAL 1.3 mg/dL (0.2-1.2); BLOOD UREA NITROGEN 16 mg/dL (10-20); CALCIUM 8.6 mg/dL (8.4-10.2); CARBON DIOXIDE 28 mmol/L (23-31); CHLORIDE 99 mmol/L (98-107); GLUCOSE 151 mg/dL (70-99); POTASSIUM 3.8 mmol/L (3.5-4.5); SODIUM 139 mmol/L (136-145); TOTAL PROTEIN 6.4 gm/dL (6.2-8.1)
[2022-01-24 15:23] LABS: BAND 13 % (0-10); LYMPHOCYTE 5 % (20.0-51.0); NEUTROPHILS 80 % (42.0-75.2); PLATELET ESTIMATE NORMAL (NORMAL)
[2022-01-24 15:26] LABS: TROPONIN-I < 0.010 ng/mL (0.00-0.033)
[2022-01-24 15:31] LABS: COLLECTION METHOD CLEAN CATCH
[2022-01-24 15:35] LABS: ARTERIAL BLD GAS O2 SATURATION 92.3 % (92-100); ARTERIAL BLD GAS TCO2 CT 25.5; ARTERIAL BLOOD GAS BASE EXCESS -0.7 (-2-2); ARTERIAL BLOOD GAS HCO3 24.2 meq/L (22-26); ARTERIAL BLOOD GAS PCO2 40.9 mmHg (35-45); ARTERIAL BLOOD GAS PO2 61.4 mmHg (80-100); ARTERIAL BLOOD GAS pH 7.39 (7.35-7.45)
[2022-01-24 15:45] LABS: MUCOUS Present (NOT PRESENT); PH 6 (5-8); SQUAMOUS EPITHELIAL None Seen /hpf (0-10); URINE APPEARANCE Clear (CLEAR/HAZY); URINE BACTERIA None Seen /hpf (NONE SEEN); URINE BILIRUBIN Negative (NEGATIVE); URINE BLOOD 1+ (NEGATIVE); URINE COLOR Yellow (YELLOW); URINE GLUCOSE Negative (NEGATIVE); URINE KETONE Negative (NEGATIVE); URINE LEUKOCYTE ESTERASE Negative (NEGATIVE); URINE NITRATE Negative (NEGATIVE); URINE PROTEIN(semi-quant) 1+ (NEGATIVE); URINE RBC 0-2 /hpf (0-2); URINE UROBILINOGEN Negative (NEGATIVE)
[2022-01-24 16:14] LABS: TRICYCLIC ANTIDEPRESS URINE NEGATIVE
--- NOTE | 2022-01-24 18:29 | NUR ---
PATIENT ARRIVED FROM ED THIS EVENING. PATIENT ALERT AND ORIENTED X3. CONTINENT OF BOWEL AND BLADDER. HAS A CRAWFORD DUE TO IMOBILITY. IV TO LEFT HAND WITH NORMAL SALINE RUNNING AT 100/HR. IV ANTIBIOTICS. PATIENT TAKES PRN OXYCODONE AT HOME FOR PAIN WITH HER ARTHRITIS. HAS A FENTANYL PATCH THAT WAS PUT ON YESTERDAY. ON 3L NASAL CANULLA. PATIENT VERY TEARFUL DURING ADMISSION.
[2022-01-24 19:52] VITALS: BP 141/89; PULSE 92; TEMP 98.8
--- NOTE | 2022-01-24 21:00 | NUR ---
Patient is resting in bed, alert and oriented x 4, VSS. States generalized pain but specially in her right shoulder r/t repositioned in the ER. Telemetry in place, NSR. Using 6L O2 NC. Assessment completed, collection of test done. No other needs at this time. Call light within reach.
[2022-01-24 23:25] VITALS: BP 124/65; PULSE 91; TEMP 99.2
[2022-01-25 03:03] VITALS: BP 110/51; PULSE 85; TEMP 98.8
[2022-01-25 05:38] LABS: BASO % 0.2 % (0.0-2.0); EOS % 0.1 % (0.0-4.0); GRAN # 8.3 K/mm3 (1.4-6.5); GRAN % 88.2 % (42.2-75.2); HEMATOCRIT 36.7 % (37.0-47.0); HEMOGLOBIN 12.2 g/dl (12.5-16.0); LYMPH # 0.7 K/mm3 (1.2-3.4); LYMPH % 7.7 % (20.0-51.0); MEAN CELL VOLUME 96 fl (80.0-100.0); MEAN CORPUSCULAR HEMOGLOBIN 32 pg (27-31); MEAN CORPUSCULAR HGB CONC 33 g/dl (33.0-37.0); MEAN PLATELET VOLUME 9.6 fl (7.4-10.4); MONO # 0.3 K/mm3 (0.1-0.6); MONO % 3.4 % (1.7-9.3); PLATELET COUNT 135 K/mm3 (130-400); RED BLOOD COUNT 3.83 M/mm3 (4.10-5.30)
[2022-01-25 05:56] LABS: ALBUMIN 2.9 gm/dL (3.4-4.8); BILIRUBIN,TOTAL 0.6 mg/dL (0.2-1.2); CALCIUM 8.4 mg/dL (8.4-10.2); CREATININE, serum 0.6 mg/dL (0.57-1.11); POTASSIUM 4.4 mmol/L (3.5-4.5)
--- NOTE | 2022-01-25 06:03 | NUR ---
Patient has had a calm night. Continue getting NS at 100 ml/hr. Able to transfer herself to the restroom. Unable to colect sputum. Report will be given to day RN.
[2022-01-25 06:15] LABS: TSH w REFLEX 0.083 uIU/mL (0.350-4.940)
[2022-01-25 07:42] VITALS: BP 124/49; PULSE 76; TEMP 98.2
--- NOTE | 2022-01-25 08:21 | NUR ---
PATIENT ALERT AND ORIENTED X3. IN PAIN AND HAVING LOTS OF INDIGESTION.
--- NOTE | 2022-01-25 10:33 | NUR ---
spool worker met with patient to complete intake and discuss discharge plan. Patient reports that she currently lives at home in [place] with her daughter Kamilah ([phone]). Patient reports that she is independent with his ADL's. She has no DME needs to assist with mobility but does endorse having a shower chair. She does have oxygen at home established through [facility] but reports that she only uses it PRN. PCP is Dr. Shanita Peters and she utilizs [facility] for medications with no cost difficulty. Patient reports that she does not have a DPOA-HC established at this time. She is and has two daughters; Kamilah ([phone]) and her second daughter lives in [place]. Patient is planning on returning home once medically ready. Patient does verbalize how she did not want to come to the hospital and is wanting to leave as soon as she can. Explained the importance of being here to get treatment to which she agreed. Discharge plan: Home (pending PT/OT rec's)
[2022-01-25 11:48] VITALS: BP 112/52; PULSE 79; TEMP 98.6
[2022-01-25 16:10] VITALS: BP 133/67; PULSE 113; TEMP 99
[2022-01-25 19:37] VITALS: BP 14/48; BP 141/48; PULSE 89; TEMP 99.1
--- NOTE | 2022-01-25 20:08 | NUR ---
PT RESTING IN BED A&O. NEUROCHECK WNL. O2 at 5L. NO DISTRESS. NO NEEDS AT THIS TIME. CALL LIGHT IN REACH.
--- NOTE | 2022-01-25 20:26 | NUR ---
PT WALKED IN [place] WITH 1 ASSIST AND WALKER/ O2. NEFTALI WELL.
[2022-01-25 23:24] VITALS: BP 118/59; PULSE 81; TEMP 99.2
--- NOTE | 2022-01-26 01:29 | NUR ---
PT SLEEPING. NO DISTRESS.
[2022-01-26 03:44] VITALS: BP 140/69; PULSE 82; TEMP 98.6
--- NOTE | 2022-01-26 06:20 | NUR ---
PT HAS SLEPT WELL THIS SHIFT. HAS OCCASIONAL LOOSE COUGH. NO NEEDS AT THIS TIEM. NEUROCHECKS WNLS TONIGHT.
[2022-01-26 07:02] LABS: BASO % 0.3 % (0.0-2.0); EOS % 0.6 % (0.0-4.0); GRAN % 76.1 % (42.2-75.2); HEMOGLOBIN 11.7 g/dl (12.5-16.0); MEAN CELL VOLUME 96 fl (80.0-100.0); MEAN CORPUSCULAR HEMOGLOBIN 32 pg (27-31); MEAN CORPUSCULAR HGB CONC 33 g/dl (33.0-37.0); MEAN PLATELET VOLUME 10.3 fl (7.4-10.4); MONO # 0.5 K/mm3 (0.1-0.6); MONO % 7.5 % (1.7-9.3); PLATELET COUNT 133 K/mm3 (130-400); RED BLOOD COUNT 3.64 M/mm3 (4.10-5.30); REDCELL DISTRIBUTION WIDTH-CV 13.2 % (11.5-14.5)
[2022-01-26 07:06] LABS: HEMATOCRIT 35.1 % (37.0-47.0)
[2022-01-26 07:13] LABS: CALCIUM 8.7 mg/dL (8.4-10.2); CREATININE, serum 0.54 mg/dL (0.57-1.11); POTASSIUM 3.5 mmol/L (3.5-4.5)
[2022-01-26 07:21] VITALS: BP 129/49; PULSE 87; TEMP 98.8
--- NOTE | 2022-01-26 11:00 | NUR ---
Scheduled medications given. Shift assessment preformed. Patient currently requiring 4L of O2 via nasal cannula. New fentanyl patch placed on right upper arm. PRN tylenol given for general aching. Dsypnea upon exertion noted. Garza catheter DC'd per orders. Pericare preformed. Patient is currently resting in bed. Respirations even and unlabored. Call light in reach.
[2022-01-26 11:15] VITALS: BP 126/59; PULSE 85; TEMP 99.4
[2022-01-26 15:11] VITALS: BP 142/81; PULSE 89; TEMP 98.3
--- NOTE | 2022-01-26 19:07 | NUR ---
Patient has had an ok day. VSS. Patient A&O. Currently requiring 4L of O2 via nasal cannula, which is baseline. Patient states that she is having some aching lower back pain, but states it is a tolerable level at this time. Patient denies any further pain, discomfort, SOA, or further needs at this time. Call light in reach. Patient able to void post boyer removal.
[2022-01-26 20:25] VITALS: BP 130/68; PULSE 80; TEMP 99.3
[2022-01-27 00:22] VITALS: BP 112/76; PULSE 87; TEMP 98.4
[2022-01-27 04:48] VITALS: BP 107/57; PULSE 77; TEMP 98.6
--- NOTE | 2022-01-27 05:29 | NUR ---
ASSESSMENT COMPLETE FOR THIS SHIFT. PT RESTING IN BED A BIT UPSET. WHEN ASKED WHAT WAS WRONG, PT STATED, SHE GOT UP TO GO TO THE BATHROOM, BUT THE IV PUMP WAS PLUGGED INTO THE WALL, AND SHE COULDN'T GET IT TO REACH THE RESTROOM, SO SHE HAD AN ACCIDENT. I TOLD PT NOT TO WORRY ABOUT THAT, WE WOULD GET THAT CLEANED UP, BUT PLEASE NEXT TIME USE HER CALL LIGHT AND LET US HELP HER. PT SAID SHE WOULD. PT DENIED PAIN, PALPITATIONS, N,V,D, DIZZINESS AND SOB. HOWEVER, PT'S O2 SATS HOVERED IN THE UPPER 80%'S ON 4 L AND HAD TO BE RAISED TO 5L. EVEN ON 5L, PT'S O2 SAT ARE BARELY ABOVE 90%. NOTIFIED RT. WILL CONTINUE TO MONITOR. NEURO CHECKS STABLE. PT EXPRESSED NO OTHER NEEDS AT THIS TIME. CALL LIGHT WITHIN REACH.
[2022-01-27 06:48] LABS: BASO % 0.2 % (0.0-2.0); EOS % 0.5 % (0.0-4.0); GRAN # 4.7 K/mm3 (1.4-6.5); GRAN % 71.8 % (42.2-75.2); HEMATOCRIT 37.2 % (37.0-47.0); HEMOGLOBIN 12.1 g/dl (12.5-16.0); LYMPH # 1.3 K/mm3 (1.2-3.4); LYMPH % 19.4 % (20.0-51.0); MEAN CELL VOLUME 98 fl (80.0-100.0); MEAN CORPUSCULAR HEMOGLOBIN 32 pg (27-31); MEAN CORPUSCULAR HGB CONC 33 g/dl (33.0-37.0); MEAN PLATELET VOLUME 10.1 fl (7.4-10.4); MONO # 0.5 K/mm3 (0.1-0.6); MONO % 7.5 % (1.7-9.3); PLATELET COUNT 161 K/mm3 (130-400); RED BLOOD COUNT 3.79 M/mm3 (4.10-5.30); REDCELL DISTRIBUTION WIDTH-CV 13.2 % (11.5-14.5)
[2022-01-27 07:05] LABS: CALCIUM 8.7 mg/dL (8.4-10.2); CREATININE, serum 0.54 mg/dL (0.57-1.11); POTASSIUM 3.5 mmol/L (3.5-4.5)
[2022-01-27 07:33] VITALS: BP 145/75; PULSE 122; TEMP 98.7
--- NOTE | 2022-01-27 09:34 | NUR ---
PT RESTING IN BED. MORNING MEDICATIONS GIVEN. SHIFT ASSESSMENT COMPLETED. PT DENIES ANY PAIN OR NEEDS. CURRENTLY ON 5L VIA NC. PT EAGER TO D/C HOME. UPDATED ON POC. WILL CONTINUE TO MONITOR.
[2022-01-27] MEDS ORDERED: PREDNISONE20 MG PO (11:14)
[2022-01-27] MEDS ORDERED: OMNICEF 300MG300 MG PO (11:15)
[2022-01-27] MEDS ORDERED: PROTONIX 40MG T40 MG PO (11:16)
[2022-01-27 11:22] VITALS: BP 143/84; PULSE 120; TEMP 98.3
--- NOTE | 2022-01-27 11:47 | NUR ---
Initial visit; Patient thanked Clinical Registered Nurse for looking in on her and offering God's blessings as she prepares to be discharged home. Clinical Registered Nurse gave Myesha a prayer card to take with her.
--- NOTE | 2022-01-27 12:07 | NUR ---
IV D/C. TELE D/C. DISCHARGE INSTRUCTIONS GIVEN, ALL QUESTIONS ANSWERED. WILL ESCORT PT OFF OF UNIT WHEN RIDE ARRIVES.
--- NOTE | 2022-01-27 12:35 | NUR ---
Dr. Lyn informs of recommendation for patient to discharge to home with home health. PT/OT has not yet assessed, but he is writing an order for her for PT and HH. This Property Underwriter reviews patient chart noting patient is up for discharge and nursing has given her discharge paperwork; daughter is en-route to the hospital to transport patient to home. Patient was informed of home health order in discharge paperwork and patient informed she is declining home health because she has enough family support at home. This Social Work requests Hope RN notify this Property Underwriter when daughter arrives to attempt to speak with patient and daughter about home health options for care. RN is in support of plan.
--- NOTE | 2022-01-27 12:36 | NUR ---
WHEN GOING OVER DISCHARGE INSTRUCTIONS THIS RN INFORMED PT ABOUT HOME HEALTH ORDERS. PT STATES SHE DOES NOT WANT HOME HEALTH AND THAT SHE WOULD CANCEL THEIR SERVICE BECAUSE SHE "HAS ENOUGH HELP AT HOME." THIS RN NOTIFIED BY CASING GRADER TO CONTACT HER WHEN PT'S DAUGHTER ARRIVES TO PICK HER UP SO SHE CAN DISCUSS THE BENEFITS AND PURPOSE OF HOME HEALTH.
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
--- NOTE | 2022-01-27 12:58 | NUR ---
Mica Builder is updated by Rebeca REYES that patient continues to refuse home health and refuses to speak to this Mica Builder regarding discussion/coordination. She has threatened to walk out if Mica Builder is referred, and she does not wish for this Mica Builder to speak to her daughter, either. This Mica Builder to complete APS report noting concern for patient safe discharge to home and recommended home health care refused.
--- NOTE | 2022-01-27 13:33 | NUR ---
PT ESCORTED OFF OF UNIT WITH BELONGINGS. WILL D/C FROM SYSTEM.
--- NOTE | 2022-01-27 16:00 | NUR ---
Html Developer completed APS report # [id number].
== END 2022-01-27 13:33 | disposition home or self-care (01) | DRG 871 ==
LOC: COL.ER 14:20 → MEDICAL 17:10
PROVIDERS: Family Medicine; Physician Assistant; ADMIT Student in an Organized Health Care Education/Training Program
PROC: 5A0935A Assistance with Respiratory Ventilation, Less than 24 Consecutive Hours, High Flow/Velocity Cannula (ICD-10-PCS; principal; 2022-01-25)
DX: A41.9 Sepsis, unspecified organism (principal); J96.21 Acute and chronic respiratory failure with hypoxia; J18.9 Pneumonia, unspecified organism; G92.8 Other toxic encephalopathy; J44.0 Chronic obstructive pulmonary disease with (acute) lower respiratory infection; Q61.3 Polycystic kidney, unspecified; T40.605A Adverse effect of unspecified narcotics, initial encounter; Z66 Do not resuscitate; E03.9 Hypothyroidism, unspecified; G89.29 Other chronic pain; M54.9 Dorsalgia, unspecified; B95.4 Other streptococcus as the cause of diseases classified elsewhere; Z20.822 Contact with and (suspected) exposure to COVID-19; Z86.73 Personal history of transient ischemic attack (TIA), and cerebral infarction without residual deficits; Z87.891 Personal history of nicotine dependence; Z79.52 Long term (current) use of systemic steroids; Z88.0 Allergy status to penicillin; Z88.2 Allergy status to sulfonamides
CPT/HCPCS: 99223-AI; 99232-AI; 99233-AI; J0456; J0696; J1650; J1940; J7030; J7050; J7512